=== PATIENT | female | born 1955 | race Caucasian/White ===

== ENCOUNTER 2020-07-12 08:49 | Inpatient (IN) | payer MEDICARE, MEDICAID, SELFPAY ==
[2020-07-12] VITALS (16 sets, daily range): BP systolic 119–164; BP diastolic 70–87; PULSE 65–81; RESP 16–23; TEMP 36.2–36.6; O2SAT 91–98; BMI 24.4
--- NOTE | 2020-07-12 09:09 | XRR_ITS ---
PROCEDURE INFORMATION: Exam: XR Chest Exam date and time: 07/12/2020 9:11 AM Age: 65 years old Clinical indication: Chest pain TECHNIQUE: Imaging protocol: XR of the chest. Views: 1 view. COMPARISON: CR Chest 2 views* [id number] 05/14/2015 1:51 PM FINDINGS: Lungs: Stable COPD . Mild to moderate peribronchial thickening and/or mild perihilar linear markings consistent with bronchitis and/or viral pneumonitis and/or reactive airway disease and/or atypical pulmonary interstitial edema. Possible mild bilateral perihilar and infrahilar bronchopneumonia. Pleural spaces: Unremarkable. No pleural effusion. No pneumothorax. Heart/Mediastinum: Unremarkable. No cardiomegaly. Vasculature: Calcification of the thoracic aorta and/or great vessels consistent with atherosclerotic vessel disease. Bones/joints: Unremarkable. XR/XR chest 1V portable [id number] IMPRESSION: 1. Stable COPD . 2. Mild to moderate peribronchial thickening and/or mild perihilar linear markings consistent with bronchitis and/or viral pneumonitis and/or reactive airway disease and/or atypical pulmonary interstitial edema. 3. Possible mild bilateral perihilar and infrahilar bronchopneumonia.
--- NOTE | 2020-07-12 09:09 | ECG_ITS ---
[facility] Test Date: 2020-07-12 Pat Name: Emeka Quick Department: Room: Gender: Female Family Resource Specialist: : 1955 Requested By: Jonnathan Villanueva Order Number: [id number] Reading MD: ALEXIA ROGERS Measurements Intervals [place] Rate: 73 P: 76 OK: 136 QRS: 77 QRSD: 98 T: 91 QT: 351 QTc: 389 Interpretive Statements SINUS RHYTHM WITH SINUS ARRHYTHMIA POSSIBLE LEFT ATRIAL ENLARGEMENT [-0.1mV P WAVE IN V1/V2] ST DEPRESSION, CONSIDER SUBENDOCARDIAL INJURY [0.1+ mV ST DEPRESSION] No previous ECG available for comparison Electronically Signed On 07-13-2020 22:25:58 CDT by ALEXIA ROGERS [email or web address]/[id number]
--- NOTE | 2020-07-12 09:19 | ED_ITS ---
HPI - Chest Pain General: Chief Complaint: Chest Pain Stated Complaint: CP GOING INTO JAW AND ARMS/BEGAN LAST PM Time Seen by Provider: 07/12/20 08:57 History of Present Illness: HPI narrative: 65-year-old female presents emergency room with complaint of chest epigastric discomfort radiating up into the left side of her jaw and into her arms that started last night. Resolved spontaneously then began again this morning she is at rest each time. She is not had any shortness of breath or diaphoresis with it no nausea or vomiting. She has no known drug history of heart disease she is not diabetic. MD complaint: chest pain and chest discomfort Onset (ago): hour(s) Timing of current episode: episodic Prior episodes: Yes Onset: during rest Pain location: left chest Pain radiation: right arm, left arm, back, neck and jaw/teeth Quality: tightness and heaviness Relieving factors: nothing Exacerbating factors: nothing Associated symptoms: Reports abdominal pain and nausea; Deny diaphoresis, dyspnea, fever(s), leg edema, palpitations, sense of impending doom, syncope or vomiting Treatment prior to arrival: aspirin Review of Systems Const: Denies: fever(s) or diaphoresis ENMT: Denies: throat pain, ear or mastoid pain, nasal discharge or nasal congestion Card: Denies: palpitations or syncope Resp: Denies: dyspnea GI: Reports: abdominal pain and nausea; Denies: vomiting : Denies: flank pain, difficulty voiding, dysuria, urinary frequency or urinary urgency Skin/Breast: Denies: rash or pruritus Physical Exam Const: COMMON NORMALS: no acute distress GENERAL APPEARANCE: cooperative and comfortable ORIENTATION/CONSCIOUSNESS: Yes awake, Yes oriented to person, Yes oriented to place and Yes oriented to time HENMT: COMMON NORMALS: normocephalic, atraumatic and hearing grossly normal bilaterally HEAD & SCALP: normocephalic and atraumatic Neck/C-Spine: COMMON NORMALS: no JVD Resp: COMMON NORMALS: normal respiratory effort, No retractions, No use of accessory muscles and clear to auscultation bilaterally AUSCULTATION: clear to auscultation bilaterally Cardio: COMMON NORMALS: no JVD, regular rate, regular rhythm and No murmurs present (Cardio) RATE: regular rate RHYTHM: regular rhythm GI: COMMON NORMALS: Soft to palpation and No hepatosplenomegaly present AUSCULTATION: Yes normoactive bowel sounds PALPATION: Yes Soft to palpation, No Tenderness to palpation present (GI), No Guarding due to palpation present (GI) and Yes No hepatosplenomegaly present Extremity: COMMON NORMALS: normal to inspection, capillary refill normal, no clubbing, cyanosis or edema, no calf tenderness and no pedal edema Neuro: SENSORIUM/ORIENTATION: Yes oriented to person, Yes oriented to place and Yes oriented to time Skin: COMMON NORMALS: no rashes or lesions noted GENERAL SKIN EXAM: no rashes or lesions noted Course Vital Signs: Vital signs: Vital Signs Temperature 97.8 F 07/14/20 12:00 Pulse Rate 71 07/14/20 14:00 Respiratory Rate 18 07/14/20 15:18 Blood Pressure 100/60 07/14/20 15:18 Pulse Oximetry 98 07/14/20 15:18 MDM - Chest Pain MDM Narrative: Medical decision making narrative: Patient has ST depression in V4 and 5. There is no diagnostic ST elevation laterally and patient is not having any significant pain at this time, resolved with nitro and morphine. First troponin is at 100 we will heparinize start nitro. Admit for NSTEMI. She will be loaded with Plavix as well. Lab Data: Attestation: I reviewed the patient's lab results. Labs: Lab Results 07/12/20 07/12/20 07/12/20 Range/Units 09:20 09:20 09:20 WBC 9.9 (4.0-10.0) 10^3/ uL RBC 5.74 H (4.1-5.3) 10^6/u L Hgb 17.2 H (11.5-15.3) g/dL Hct 51.5 H (37.0-47.0) % MCV 89.7 (81-99) fL MCH 30.0 (28.0-34.0) pg MCHC 33.4 (30.0-36.0) g/dL RDW 12.9 (12.1-15.1) % Plt Count 198 (130-400) 10^3/c mm MPV 9.9 (7.4-10.4) fL Neut % (Auto) 81.6 % Lymph % (Auto) 11.2 % [place] % (Auto) 5.2 % Eos % (Auto) 1.2 % Baso % (Auto) 0.5 % Neut # (Auto) 8.08 H (1.8-7.7) 10^3/u L Lymph # (Auto) 1.1 (0.8-4.8) 10^3/u L [place] # (Auto) 0.5 (0.2-0.9) 10^3/u L Eos # (Auto) 0.1 (0.0-0.8) 10^3/u L Baso # (Auto) 0.1 (0.0-0.1) 10^3/u L Nucleated RBC % (a uto) 0 % Nucleated RBCs # 0.0 /100WBC Sodium 141 (136-145) mmol/L Potassium 4.0 (3.5-5.1) mmol/L Chloride 101 (98-107) mmol/L Carbon Dioxide 32 H (22-29) mmol/L Anion Gap 12.0 (5-19) BUN 13 (8-23) mg/dL Creatinine 0.6 (0.5-0.9) mg/dL GFR Calculation 100.3 (90-130) mL/min Glucose 131 H (65-115) mg/dL Calculated Osmolal ity 294 (285-295) mOsm/k g Calcium 9.8 (8.5-10.5) mg/dL Total Bilirubin 0.4 (0.15-1.2) mg/dL AST 22 (0-32) U/L ALT 8 (0-33) U/L Alkaline Phosphata se 89 (35-105) IU/L Creatine Kinase 187 (26-192) U/L Troponin T Baselin e 102 H* (0-10) ng/L Total Protein 7.7 (6.6-8.7) g/dL Albumin 4.8 (3.5-5.2) g/dL Globulin 2.9 (1.3-4.6) g/dL Discharge Plan Discharge Patient Disposition: Admitted As Inpatient Admit Provider: Iraj Cooney Clinical Impression: Non-ST elevation [place] (NSTEMI) Condition: Stable Discharge Diet: Cardiac Discharge Activity: Resume usual activity Coding Level of Care Code ED Us Marketing Director for [facility] Fwd Exam Comprehensive
[2020-07-12 09:31] LABS: Basophils # 0.1 10^3/uL (0.0-0.1); Basophils % 0.5 %; Eosinophils # 0.1 10^3/uL (0.0-0.8); Eosinophils % 1.2 %; Hematocrit 51.5 % (37.0-47.0); Hemoglobin 17.2 g/dL (11.5-15.3); Lymphocytes # 1.1 10^3/uL (0.8-4.8); Lymphocytes % 11.2 %; Mean Corpuscular HGB Conc 33.4 g/dL (30.0-36.0); Mean Corpuscular Volume 89.7 fL (81-99); Mean Platelet Volume 9.9 fL (7.4-10.4); Monocytes # 0.5 10^3/uL (0.2-0.9); Monocytes % 5.2 %; Neutrophils # 8.08 10^3/uL (1.8-7.7); Neutrophils % 81.6 %; Nucleated Red Blood Cells % 0 %; Platelet Count 198 10^3/cmm (130-400); Red Blood Count 5.74 10^6/uL (4.1-5.3); Red Cell Distribution Width 12.9 % (12.1-15.1); White Blood Count 9.9 10^3/uL (4.0-10.0)
[2020-07-12] MEDS: nitroglycerin 1 gm/inch oint Pkt 1 INCH TOPICAL (09:31)
[2020-07-12] MEDS: aspirin 81 mg Chew Tablet 324 MG PO (09:31)
[2020-07-12 09:58] LABS: Alanine Aminotransferase 8 U/L (0-33); Albumin Level 4.8 g/dL (3.5-5.2); Alkaline Phosphatase 89 IU/L (35-105); Aspartate Amino Transferase 22 U/L (0-32); Blood Urea Nitrogen 13 mg/dL (8-23); Calcium 9.8 mg/dL (8.5-10.5); Carbon Dioxide 32 mmol/L (22-29); Chloride 101 mmol/L (98-107); Creatine Phosphokinase 187 U/L (26-192); Globulin 2.9 g/dL (1.3-4.6); Glomerular Filtration Rate 100.3 mL/min (90-130); Glucose 131 mg/dL (65-115); Osmolality Calculated 294 mOsm/kg (285-295); Sodium 141 mmol/L (136-145); Total Bilirubin 0.4 mg/dL (0.15-1.2); Total Protein 7.7 g/dL (6.6-8.7)
[2020-07-12 10:14] LABS: Troponin(5th) Baseline 102 ng/L (0-10)
[2020-07-12] MEDS: morphine 4 mg/mL SDV 1 mL 2 MG IVP ×2 (10:34→11:02)
[2020-07-12] MEDS: heparin 5,000 unit/mL INJ 1 mL 4000 UNIT IVP (10:35)
[2020-07-12] MEDS: heparin drip 25,000 UNIT/500 ML PREMIX 15.9 UNIT IV (10:42)
[2020-07-12] MEDS: nicotine 21 mg Patch 1 PATCH TRANSDERMA (10:53)
[2020-07-12] MEDS: clopidogrel 300 mg Tablet 600 MG PO (10:53)
--- NOTE | 2020-07-12 11:09 | ECG_ITS ---
[facility] Test Date: 2020-07-12 Pat Name: Emeka Quick Department: Room: 111 Gender: Female Director Of Enterprise Strategy: : 1955 Requested By: Jonnathan Villanueva Order Number: [id number] Reading MD: ALEXIA ROGERS Measurements Intervals [place] Rate: 65 P: 79 [place]: 137 QRS: 66 QRSD: 86 T: -15 QT: 380 QTc: 397 Interpretive Statements SINUS RHYTHM LEFT VENTRICULAR HYPERTROPHY AND ST-T CHANGE [VOLTAGE CRITERIA PLUS ST/T ABNORMALITY] Compared to ECG 07/12/2020 08:56:56 Left ventricular hypertrophy now present Sinus arrhythmia no longer present ST (T wave) deviation still present Electronically Signed On 07-13-2020 22:28:56 CDT by ALEXIA ROGERS [id number]
[2020-07-12] MEDS: ondansetron 2 mg/ML SDV 2 mL 4 MG IVP (12:33)
[2020-07-12 12:57] LABS: Troponin 5 2HR 257.5 ng/L (0-10)
[2020-07-12 13:00] LABS: Troponin 5 2HR Delta 155.5 ABS# (0-10)
--- NOTE | 2020-07-12 14:00 | USCV_ITS ---
Emeka Quick Age: 65 Gender: F : 1955 Exam Date: 07/12/2020 16:19 Ordering Phys: Iraj Cooney MD Technologist: COLETTE Exam Location: [facility] Indication: Chest pain BP: 132 / 73 HR: 59 Rhythm: Sinus Technical Quality: Adequate MEASUREMENTS (Male / Female) Normal Values 2D ECHO LV Diastolic Diameter PLAX 4.0 cm 4.2 - 5.9 / 3.9 - 5.3 cm LV Systolic Diameter PLAX 2.3 cm LV Chamber Size 3.3 cm IVS Diastolic Thickness 1.1 cm 0.6 - 1.0 / 0.6 - 0.9 cm IVS Systolic Thickness 2.0 cm LVPW Diastolic Thickness 0.9 cm 0.6 - 1.0 / 0.6 - 0.9 cm LVPW Systolic Thickness 0.8 cm RV Chamber Size 2.0 cm LVOT Diameter 1.8 cm LV Ejection Fraction 2D Teich 74.3 % LV Ejection Fraction MOD 2C 75.8 % LV Ejection Fraction 2C AL 78.2 % LA Diameter 2.9 cm LA Width 3.1 cm LA Height 4.4 cm RA Width 2.0 cm RA Height 4.3 cm Aorta at Sinotubular Diameter 2.9 cm M-MODE LV Diastolic Diameter MM 4.0 cm 4.2 - 5.9 / 3.9 - 5.3 cm LV Systolic Diameter MM 2.7 cm LV Ejection Fraction MM Teich 61.7 % IVS Diastolic Thickness MM 1.2 cm 0.6 - 1.0 / 0.6 - 0.9 cm IVS Systolic Thickness MM 1.6 cm LVPW Diastolic Thickness MM 1.4 cm 0.6 - 1.0 / 0.6 - 0.9 cm LVPW Systolic Thickness MM 1.3 cm RV Diastolic Diameter MM 1.3 cm Aortic Annulus Diameter 2.4 cm LA Ao Ratio MM 1.3 MV E Point Septal Separation 0.3 cm DOPPLER AV Peak Velocity 99.0 cm/s LVOT Peak Velocity 61.0 cm/s AV Area Cont Eq vti 1.7 cm squared AV Area Cont Eq pk 1.6 cm squared MV Area PHT 4.3 cm squared Mitral E to A Ratio 1.3 MV E' Velocity 30.5 cm/s Mitral E to MV E' Ratio 8.1 Mitral E to LV E' Lateral Ratio 7.6 Mitral E to LV E' Septal Ratio 8.6 TR Peak Velocity 266.9 cm/s TR Peak Gradient 28.5 mmHg TR Mean Velocity 212.1 cm/s TR Mean Gradient 19.1 mmHg TR Velocity Time Integral 90.1 cm TV Peak E Velocity 65.0 cm/s Right Atrial Pressure 3.0 mmHg Pulmonary Artery Systolic Pressu 31.5 mmHg PV Peak Velocity 44.0 cm/s RV Acceleration Time 0.1 s RV Ejection Time 0.3 s RV AcT/ET 0.3 FINDINGS Left Ventricle Normal left ventricular cavity size. Normal left ventricular systolic function. Left ventricular ejection fraction is estimated at 55 %. No regional wall motion abnormalities. Grade II/IV diastolic dysfunction, moderately elevated filling pressures. Right Ventricle The right ventricle is normal in size and function. Right Atrium The right atrium is normal in size. Left Atrium The left atrium is normal in size. Mitral Valve Mildly thickened mitral valve. No mitral valve stenosis. Moderate mitral valve regurgitation. Aortic Valve Aortic valve sclerosis without stenosis. Tricuspid Valve Structurally normal tricuspid valve without significant stenosis or regurgitation. Pulmonary artery systolic pressure is normal. Pulmonic Valve Structurally normal pulmonic valve without significant stenosis. There is no pulmonic regurgitation. Pericardium Normal pericardium without effusion. Aorta Normal ascending aorta dimension. CONCLUSIONS 1-Normal left ventricular cavity size. Normal left ventricular systolic function. Left ventricular ejection fraction is estimated at 55 %. No regional wall motion abnormalities. Grade II/IV diastolic dysfunction, moderately elevated filling pressures. 2-Aortic valve sclerosis without stenosis. 3-Mildly thickened mitral valve. No mitral valve stenosis. Moderate mitral valve regurgitation. 4-There is no pericardial effusion. 5-Pulmonary artery systolic pressure is within normal limits. 6-Right atrial pressure is around 5 mm of mercury. 7-There are no prior echocardiogram studies to compare. Katia Newton MD (Electronically Signed) Final Date: 13 Jul 2020 00:03 S
[2020-07-12] MEDS: isosorbide mononitrate ER 30 mg Tablet PO (14:19)
[2020-07-12] MEDS: enoxaparin 60 mg/0.6 mL Syringe SUBCUT (14:19)
[2020-07-12] MEDS: metoprolol tartrate 25 mg Tablet 12.5 MG PO ×2 (14:19→20:19)
--- NOTE | 2020-07-12 14:19 | P.HP_ITS ---
Providers/Chief Complaint Admitting Physician: Iraj Cooney MD Primary Care Provider: Abby Stanton, TRAVEL FREIGHT AND PASSENGER AGENT-C Chief Complaint: CP GOING INTO JAW AND ARMS/BEGAN LAST PM History of Present Illness Emeka Quick is a 65 year old female with past medical history of chronic smoking, for close to 50 years, about a pack a day, and chronic back pain , came in with chief complaint of acute onset of left-sided substernal chest pain, radiating to both the arms, as well as both jaws, it was also accompanied by, profuse diaphoresis, nausea. Symptoms started last night. Upon arrival in the ER she was worked up for above-mentioned. EKG: On arrival showed ST depression in: Lead I, aVL, V4 V5, with evolving ST changes in lead III aVF. Serial EKG thereafter done had shown dynamic ST-T wave changes. X-ray chest: No infiltrates, chronic COPD changes. Pertinent labs: Hemoglobin: 17.2, hematocrit:51, CMP normal: Troponin T baseline: 102, 2-hour troponin: 257, 2-hour delta:155, 6 hours troponin: 514, 6-hour delta: 412. ECA medications: Upon arrival in the ER : She was loaded with aspirin and Plavix, and was started on heparin drip.Nitropaste was applied. Review of Systems Const: Denies: fever(s), chills or body aches Card: Denies: palpitations, edema, swelling of feet/ankles or leg pain with exertion Resp: Denies: productive cough or pain on inspiration GI: Denies: abdominal pain, diarrhea or constipation : Denies: flank pain Musc: Denies: extremity pain or extremity swelling Neuro: Denies: headache(s), difficulty walking or confusion Medications/Allergies Home Medications Medication Instructions Recorded Confirmed Last Taken Type aspirin-caffeine [BC Pain Relief] See Rx Instructions .ROUTE .COMPLEX 07/12/20 07/12/20 07/11/20 History naproxen sodium [Aleve] 220 - 440 mg PO Q8H PRN 07/12/20 07/12/20 07/11/20 History oxycodone 15 mg PO Q4H PRN 07/12/20 07/12/20 07/12/20 History Allergies Allergy/AdvReac Type Severity Reaction Status Date / Time cephalexin [From Keflex] Allergy ALGY-Difficulty Verified 07/12/20 08:56 Breathing Vitals/I&O/Wt Last Vital Signs Temp 97.1 F L 07/12/20 08:50 Pulse 70 07/12/20 13:44 Resp 19 H 07/12/20 13:44 BP 138/77 07/12/20 13:44 Pulse Ox 94 07/12/20 13:44 Weight last 48 hrs Weight 56.699 kg Physical Exam Const: COMMON NORMALS: patient oriented x3 HENMT: COMMON NORMALS: normocephalic and atraumatic Resp: COMMON NORMALS: clear to auscultation bilaterally EFFORT & INSPECTION: Yes symmetric chest movement AUSCULTATION: clear to auscultation bilaterally Cardio: COMMON NORMALS: regular rate, regular rhythm, S1 normal heart sound present, S2 normal heart sound present, No gallops present (Cardio), No murmurs present (Cardio), No rub (Cardio) and Peripheral pulses 2+ throughout RATE: regular rate RHYTHM: regular rhythm HEART SOUNDS: S1 normal heart sound present and S2 normal heart sound present PERIPHERAL PULSES: Peripheral pulses 2+ throughout GI: COMMON NORMALS: Normal to inspection, nondistended, normoactive bowel sounds present, Soft to palpation, non-tender, No hepatosplenomegaly present and no masses AUSCULTATION: Yes normoactive bowel sounds PALPATION: Yes Soft to palpation and Yes No hepatosplenomegaly present RECTAL EXAM: deferred Extremity: COMMON NORMALS: no clubbing, cyanosis or edema and no pedal edema Neuro: COMMON NORMALS: patient oriented x3 Data : 07/12/20 09:20 07/12/20 09:20 A&P Assessment and plan (1) Non-ST elevation CT (NSTEMI): 2D echo: Telemetry Aspirin 81 mg oral daily Plavix 75 mg p.o. day Metoprolol tartrate 12.5 mg p.o. every 12 hours Atorvastatin 80 mg p.o. IMDUR 30 mg p.o. a day Lovenox 60 twice daily Nitro drip Sublingual nitro as needed N.p.o. after midnight Cardiac cath in a.m. Cardiology on board Status: Acute (2) Chronic back pain: Status: Acute (3) Smoking addiction: Nicotine patch Have counseled the patient to quit smoking. Status: Acute Attestations Medical Necessity Statement*: Patient needs to be in hospital for management of NSTEMI. Anticipated length of stay greater than 2 midnightS. Coding Level of Care Code Acute Teacher Associate for Tamar Acuña Diagnoses Non-ST elevation CT (NSTEMI) I21.4 Chronic back pain M54.9; G89.29 Smoking addiction F17.200
--- NOTE | 2020-07-12 15:09 | ECG_ITS ---
[facility] Test Date: 2020-07-12 Pat Name: Emeka Quick Department: Room: 111 Gender: Female Staff Research Scientist: : 1955 Requested By: Jonnathan Villanueva Order Number: [id number] Reading MD: ALEXIA ROGERS Measurements Intervals [place] Rate: 66 P: 76 NC: 133 QRS: 48 QRSD: 87 T: -42 QT: 414 QTc: 437 Interpretive Statements SINUS RHYTHM ST DEVIATION AND MODERATE T-WAVE ABNORMALITY, CONSIDER INFERIOR ISCHEMIA [-0.1+ mV T WAVE IN II/aVF] Compared to ECG 07/12/2020 12:14:39 T-wave abnormality now present Possible ischemia now present Left ventricular hypertrophy no longer present ST (T wave) deviation no longer present Electronically Signed On 07-13-2020 22:28:39 CDT by ALEXIA ROGERS [id number]
[2020-07-12 15:50] LABS: Troponin 5 6HR 514.7 ng/L (0-10); Troponin 5 6HR Delta 412.7 ng/L (0-12)
[2020-07-12] MEDS: nitroglycerin drip 50 MG/250 ML PREMIX IV (15:55)
[2020-07-12] MEDS: oxyCODONE-APAP 5-325 mg Tablet 1 TAB PO ×2 (16:48→20:52)
--- NOTE | 2020-07-12 19:27 | PM.CONSULT ---
Providers/Reason For Consult Consulting Physican/Specialty*: Cardiology Reason for Consult*: Non-ST elevation OK Attending Physician: Iraj Cooney MD Primary Care Provider: CHINO Thapa History of Present Illness History of Present Illness Emeka Quick is a 65 year old female past medical history significant for [id number] continues tobacco abuse COPD hypertension hyperlipidemia was struggling with chest pain for the last 2 days. This morning it became more intense and concerning therefore she decided to come to the ER. In the ER she was given nitro and pain medicine after that pain stopped hurting. She was ruled in for non-ST elevation OK. She was given Lovenox and loaded with 600 mg of Plavix Review of Systems Const: Denies: fever(s) or diaphoresis ENMT: Denies: throat pain, ear or mastoid pain, nasal discharge or nasal congestion Card: Denies: palpitations or syncope Resp: Denies: dyspnea GI: Reports: abdominal pain and nausea; Denies: vomiting : Denies: flank pain, difficulty voiding, dysuria, urinary frequency or urinary urgency Skin/Breast: Denies: rash or pruritus Meds/Allergies Home Medications and Allergies Home Medications Medication Instructions Recorded Confirmed Last Taken Type aspirin-caffeine [BC Pain Relief] See Rx Instructions .ROUTE .COMPLEX 07/12/20 07/12/20 07/11/20 History naproxen sodium [Aleve] 220 - 440 mg PO Q8H PRN 07/12/20 07/12/20 07/11/20 History oxycodone 15 mg PO Q4H PRN 07/12/20 07/12/20 07/12/20 History Allergies Allergy/AdvReac Type Severity Reaction Status Date / Time cephalexin [From Keflex] Allergy ALGY-Difficulty Verified 07/12/20 08:56 Breathing Current Medications Current Medications Generic Name Dose Route Start Last Admin Trade Name Freq PRN Reason Stop Dose Admin Enoxaparin Sodium 60 mg 07/12/20 14:30 07/12/20 14:19 Enoxaparin 60 Mg/0.6 Ml Syringe SUBCUT 60 mg Q12H DEANGELO Administration Nitroglycerin/Dextrose 50 mg in 250 mls @ 0 mls/hr 07/12/20 14:15 07/12/20 15:55 Nitroglycerin Drip IV 5 mcg/min .Q0M DEANGELO 1.5 mls/hr Administration Protocol Per Protocol Isosorbide Mononitrate 30 mg 07/12/20 14:05 07/12/20 14:19 Isosorbide Mononitrate Er 30 Mg Tablet PO 30 mg DAILY DEANGELO Administration Metoprolol Tartrate 12.5 mg 07/12/20 14:05 07/12/20 14:19 Metoprolol Tartrate 25 Mg Tablet PO 12.5 mg BID@0900,2100 DEANGELO Administration Oxycodone/Acetaminophen 1 tab 07/12/20 13:57 07/12/20 16:48 Oxycodone-Apap 5-325 Mg Tablet PO 1 tab Q4H PRN Administration SEVERE PAIN Vitals/I&O/Wt Last Vital Signs Temp 97.9 F 07/12/20 14:55 Pulse 74 07/12/20 14:55 Resp 18 07/12/20 16:48 BP 132/73 07/12/20 14:55 Pulse Ox 95 07/12/20 14:55 07/12/20 07/12/20 07/12/20 06:59 14:59 22:59 Intake Total 52.47 / 52.47 120 / 172.47 Balance 52.47 / 52.47 120 / 172.47 Weight last 48 hrs Weight 125 lb Physical Exam Narrative: EXAM NARRATIVE: GENERAL: Patient is alert, awake and oriented x3. NECK: No jugular vein distension. HEENT: No cyanosis. No icterus. No pallor. HEART: Regular S1 and S2. No murmur, rub or gallop. LUNGS: Clear to auscultate bilaterally. ABDOMEN: Soft, nontender and nondistended. Positive bowel sounds. No guarding, rebound or tenderness. CENTRAL NERVOUS SYSTEM: Grossly nonfocal. EXTREMITIES: Lower extremities without edema bilaterally. Data EKG^: EKG 1: I personally reviewed and interpreted this EKG as follows: My Interpretation: Sinus rhythm normal axis inferior T wave inversion possible ischemia however normal CO and QT QTc interval A&P Assessment and plan (1) Non-ST elevation [place] (NSTEMI): Currently patient is chest pain-free troponin more than 500 suggestive of non-ST relation OK. Possible lesion in the inferior wall/of RCA. Continue monitoring continue nitro drip will proceed with left heart cath/PCI if indicated in the morning. Patient has been explained by myself all risk benefit and alternative for the procedure he understand the risk of major minor surgery major minor bleed urgent emergent CABG stroke and worse case scenario . She would like to proceed with it. She is a suitable candidate for DAPT. Will ask for echocardiogram to assess LV function Status: Acute (2) Chronic back pain: Status: Acute Qualifiers: Back pain location: low back pain Sciatica presence: unspecified whether sciatica present (3) Smoking addiction: Advised to quit smoking patient did not see anything about it Status: Acute Consult Attestations Medical Necessity Statement: I am expecting patient stay to cross more than 2 midnights Coding Level of Care Code New Pt Acute Inside Sales Account Representative for g Fwd Patient Type New History Detailed Exam Detailed Medical Decision Making Moderate Complexity Diagnoses Non-ST elevation [place] (NSTEMI) I21.4 Chronic back pain M54.9; G89.29 Back pain location: low back pain Sciatica presence: unspecified whether sciatica present Smoking addiction F17.200
[2020-07-12] MEDS: atorvastatin 40 mg Tablet 80 MG PO (20:18)
[2020-07-13] VITALS (43 sets, daily range): BP systolic 92–141; BP diastolic 57–86; PULSE 66–96; RESP 16–33; TEMP 36.6–36.9; O2SAT 89–98
[2020-07-13] MEDS: ondansetron 2 mg/ML SDV 2 mL 4 MG IVP (01:58)
[2020-07-13] MEDS: enoxaparin 60 mg/0.6 mL Syringe SUBCUT (02:00)
[2020-07-13] MEDS: morphine 4 mg/mL SDV 1 mL 2 MG IVP ×2 (02:05→20:44)
[2020-07-13] MEDS: zolpidem 5 mg Tablet PO (02:59)
[2020-07-13 05:34] LABS: Basophils % 0.3 %; Hematocrit 45.9 % (37.0-47.0); Hemoglobin 14.7 g/dL (11.5-15.3); Lymphocytes # 1.2 10^3/uL (0.8-4.8); Lymphocytes % 8.3 %; Mean Corpuscular Hemoglobin 29.5 pg (28.0-34.0); Mean Corpuscular Volume 92.2 fL (81-99); Mean Platelet Volume 10.3 fL (7.4-10.4); Nucleated Red Blood Cells % 0 %; Platelet Count 205 10^3/cmm (130-400); Red Blood Count 4.98 10^6/uL (4.1-5.3); Red Cell Distribution Width 13.2 % (12.1-15.1); White Blood Count 14.1 10^3/uL (4.0-10.0)
[2020-07-13] MEDS: sodium chloride 0.9% 1,000 ML 50 ML IV (05:40)
[2020-07-13 05:55] LABS: Alanine Aminotransferase 26 U/L (0-33); Albumin Level 3.6 g/dL (3.5-5.2); Alkaline Phosphatase 69 IU/L (35-105); Aspartate Amino Transferase 151 U/L (0-32); Blood Urea Nitrogen 14 mg/dL (8-23); Calcium 9.1 mg/dL (8.5-10.5); Carbon Dioxide 25 mmol/L (22-29); Chloride 98 mmol/L (98-107); Globulin 2.9 g/dL (1.3-4.6); Glomerular Filtration Rate 160.2 mL/min (90-130); Glucose 123 mg/dL (65-115); Osmolality Calculated 276 mOsm/kg (285-295); Sodium 132 mmol/L (136-145); Total Bilirubin 0.9 mg/dL (0.15-1.2); Total Protein 6.5 g/dL (6.6-8.7)
[2020-07-13 06:02] LABS: Anion Gap 12.6 (5-19); Potassium 3.6 mmol/L (3.5-5.1)
[2020-07-13] MEDS: diphenhydrAMINE 50 mg Capsule PO (08:23)
--- NOTE | 2020-07-13 09:11 | PC.NURSE ---
Per Dr. Newton, please hold all morning medications until after cardiac cath.
--- NOTE | 2020-07-13 09:46 | XACV_ITS ---
Exam Room: [facility] Ht: 152 cm Wt: 57 kg BSA: 1.56 m2 Gender: Female : 1955 Any Known Allergies: Other Exam Priority: Routine Procedure(s): Procedure Description: Diagnostic procedure Procedure Description: PCI procedure Procedure Description: Drug Eluting Coronary Stent Procedure Description: PTCA Procedure Description: Coronary Angiography Diagnostic Cath Status: Elective Diagnostic Findings * Left Main has no disease. * Left Anterior Descending has no disease. * Circumflex has no disease. * Distal Right Coronary Artery: subtotal occlusion, CARLOS: 2 flow. * Coronary angiography shows right dominance. PCI Status: Elective Interventional Findings * Distal Right Coronary Artery: 96% stenosis treated with a AB TREK 2.50X15 RX BALLOON, and MDT R MEERA 3.0X18 MAURO. 0% residual stenosis, CARLOS: 3 flow. Conclusions 1. There is subtotal occlusion coronary artery disease with one vessel disease. 2. Distal Right Coronary Artery was treated with a Balloon, and Drug Eluting Stent. Recommendations * Continue current medical management and risk factor modification. Pressures Phase:Rest AO : 185 / 65 ( 79 ) @ 10:07:00 AM Clinical Evaluation EBL: 5mL-10mL Procedural Details Procedure Consent Obtained. Identified patient by full name and date of as verbalized by the patient/guarantor. Pre-Procedure Time Out. Does the consent match the physician's order: Yes. Accurate & Complete Informed Consent: Yes. Inpatient/Outpatient History & Physical on Chart: Yes. If H&P is completed, is and addenduem needed: No; If yes, is the addendum complete: N/A. Visualize and Verify Site with Patient/Guarantor: N/A. Relevant Radiology Images available: Yes. Pre-op teaching completed and patient verbalized understanding. The risks, benefits, and alternatives of sedation and/or procedure were discussed by physician. The patient agrees to continue. Procedure started. [facility] Clinical Fraility Score: 3: Managing Well. Safety Spec Indications: Suspected CAD. Chest Pain Symptom Assessment: Typical Angina Symptoms. Cardiovascular Instability: No. Correct patient, site and procedure confirmed by cath team. Current diagnosis: NSTEMI. PERRLA. Strong, equal hand airport guide bilaterally. Lungs clear x 5 lobes. IV Site on Arrival: 20 gauge in the left anticubital. IV Fluids: 0.9% NaCl at KVO. 0 mL infused prior to superintendent geophysical laboratory. Pre Procedural Pulses: bilateral dorsalis pedis was 3+. Pre Procedural Pulses: bilateral posterior tibial was 3+. Pre Procedural Pulses: bilateral radial was 3+. Oxygen started at 2liters/min via nasal canula. bilateral groins was prepped with chloroprep then draped in the usual sterile fashion. right radial was prepped with chloroprep then draped in the usual sterile fashion. Physician notified. Baseline sample Acquired. HR: 72 BPM. Equipment: 6F - Radial. ACIST Manifold Kit Model BT 2000. Cardiac Cath Pack. Heparinized Saline (2 units/mL), 1000 mL bag. Physician arrived. Physician scrubbed in. Immediate Pre-Procedure Time Out. Correct Patient: Yes; Correct Procedure: Yes; Correct Site: Yes; Correct Patient Position: Yes; Correct Supplies: Yes; Dried Flammable Prep: Yes; Blood Products Available: No;. Lidocaine 1% infiltrated to the right radial. Arterial access obtained. A 6 niuean TIG catheter in over wire. Multiple views taken of right coronary artery. Catheter redirected to the RCA. Catheter out. 6 niuean JR 4 SH guide catheter was inserted over the wire. Hand injection performed. Guide catheter out. Radial site aborted due to spasms. Physician will obtain access in the groin. Lidocaine 1% infiltrated to the right groin. Arterial access obtained with micropuncture set. 6 niuean JR 4 SH guide catheter was inserted over the wire. [place] guidewire was advanced through the guide catheter to lesion in the mid RCA. Inflation number : 1 A AB TREK 2.50X15 RX BALLOON was prepped and advanced across the Mid RCA , then inflated to 16 CLAIRE for 0:09 seconds. Inflation number: 2 The AB TREK 2.50X15 RX BALLOON was reinflated across the Mid RCA, to 16 CLAIRE for 0:14 seconds. Balloon out. Inflation Number : 3 A LUZ ELENA Merlos MEERA 3.0X18 MAURO -Lot Number#[id number] was prepped and advanced across the Mid RCA. The stent was deployed at 16 CLAIRE for 0:25 seconds. Stent expiration date: 03-31-2022. Stent balloon out over wire. Wire out. Guide catheter out. Sheath(s) sutured into position with 2-0 silk and sterile 4x4's and Op-site applied over the site. No oozing or signs and symptoms of hematoma noted. Arterial sheath flushed and connected to tranducer and pressure bag with heparinized saline. A TR Band was successful obtaining hemostatsis at the Right Radial artery insertion site. A Suture was successful obtaining hemostatsis at the Right Femoral artery insertion site. Post Procedure: Pulses reassessed and unchanged. PERRLA. Strong, equal hand airport guide bilaterally. No VTE prophylaxis required. Medication's Wasted: Heparin = 4000 units. Medication's Wasted: Lidocaine 1% = 8 mL. Medication's Wasted: Nitro = 49.6 mg. Medication's Wasted: Other = Versed 1 mg. Vital chart was stopped. Total IV fluids: 100 mL. Contrast type used: Omnipaque 300 mgI/mL, 500 mL bottle. PCI Indication: NSTE. Post-op diagnosis: Severe Stenosis of RCA. Complications: None. Estimated blood loss: 5mL-10mL. Procedure completed. Patient transferred by bed to 1st floor. Access Site Site: Right Radial artery Sheath Size: 6 Fr Hemostasis Method: TR Band Hemostasis Success: Successful Site: Right Femoral artery Sheath Size: 6 Fr Hemostasis Method: Suture Hemostasis Success: Successful Procedure Medications Start: 10:11 AM Stop: 10:11 AM Medication: Fentanyl Amount: 50 mcg Route: I.V. Start: 10:28 AM Stop: 10:28 AM Medication: Versed Amount: 1 mg Route: I.V. Start: 10:33 AM Stop: 10:33 AM Medication: Nitrogylcerin Amount: 200 mcg Route: I.A. Start: 10:33 AM Stop: 10:33 AM Medication: Versed 1 mg and Fentanyl 25 mcg Amount: 1 Route: I.V. Start: 10:42 AM Stop: 10:42 AM Medication: Nitrogylcerin Amount: 200 mcg Route: I.A. Start: 10:44 AM Stop: 10:44 AM Medication: Nitrogylcerin Amount: 200 mcg Route: I.A. Start: 10:44 AM Stop: 10:44 AM Medication: Lovenox (Enoxaparin) Amount: 30 mg Route: I.V. Start: 10:46 AM Stop: 10:46 AM Medication: Verapamil Amount: 5 mg Route: I.A. Start: 10:52 AM Stop: 10:52 AM Medication: Versed 1 mg and Fentanyl 25 mcg Amount: 1 Route: IFelicity Isbell, the attending physician, have reviewed and verified all procedure medications. Yes, all medications given per verbal order History/Risk Factors Hypertension: Yes Dyslipidemia: Yes Peripheral Arterial Disease (PAD): No Myocardial Infarction (SD): No Obesity: No Renal Disease: No Tobacco Use: Current/Recent(w/in 1 year) Prior Interventions PCI: No CABG: No Valve Surgery: No Report Signatures Finalized by Katia Newton MD on 07/22/2020 09:35 PM
--- NOTE | 2020-07-13 09:59 | PC.NURSE ---
Patient taken to laborer laboratory via hospital bed Per ADOLFO Kaplan and Lisy. Introduced patient to laborer laboratory staff. No questions at time of transfer.
--- NOTE | 2020-07-13 11:54 | PC.CHAP ---
Pastoral Care Encounter/Spiritual Assessment Type of Contact [] Declined service dog trainer visit [] Patient/Family/Request visit [] Outpatient visit [] Follow-up visit [] Physician referral [] Code/Alert [XX] Routine visit [] Staff referral [] Actively dying [] Patient sleeping [] Family support [] [XX] Out of room [] Palliative care [] [] Receiving care in room [] Pre-surgical visit [] Trauma [] Long length of stay [] ICU visit [] Other: Relational/Emotional Strength [] Patient feels connected with others/family/visitors/staff [] Distress [] Loneliness/isolation [] Abandonment Spirituality of Patient [] Person of Belkis [] Attends Oriental Orthodox of their [place] [] Believes in Prayer [] Reads Bible or Bahai materials [] There are Spiritual issues to be addressed Plant Clerk Interventions [] Prayer [] Active listening [] Non-anxious presence [] Spiritual/emotional support [] Crisis/trauma care [] Spiritual counseling [] Bereavement support [] Provided bereavement packet [] Provided Bible/devotional materials [] Provided toy/stuffed animal, coloring book to patient or family member [] Provided Communion [] Anointing/[place] [] Salvation [] Completed spiritual assessment [] Other: Impact on Illness or Injury [] Angry [] Fearful [] Anxious [] Often cries [] Exhaustion [] Unable to work [] Unable to attend episcopalian [] Unable to walk/stand [] Unable to read [] Unable to drive [] Unable to eat/drink [] Unable to sleep [] Unable to be with family [] Patient intubated [] Other: Summary Time spent with patient
[2020-07-13] MEDS: aspirin 81 mg Chew Tablet PO (12:03)
[2020-07-13] MEDS: pantoprazole DR 40 mg Tablet PO (12:03)
[2020-07-13] MEDS: metoprolol tartrate 25 mg Tablet 12.5 MG PO ×2 (12:03→20:38)
[2020-07-13] MEDS: isosorbide mononitrate ER 30 mg Tablet PO (12:04)
--- NOTE | 2020-07-13 12:16 | P.PN_ITS ---
Subjective Subjective: Interval history: Status post PCI to mid RCA with single drug- eluting stent for severe 90% stenosis which is the culprit vessel Medications: Reviewed: Yes Vitals/I&O/Wt Last Vital Signs Temp 98.3 F 07/13/20 07:44 Pulse 77 07/13/20 11:31 Resp 18 07/13/20 11:31 BP 131/76 07/13/20 11:31 Pulse Ox 95 07/13/20 11:31 07/12/20 07/13/20 07/13/20 22:59 06:59 14:59 Intake Total 132 / 184.47 14 / 198.47 Balance 132 / 184.47 14 / 198.47 Weight last 48 hrs Weight 125 lb Physical Exam Narrative: EXAM NARRATIVE: GENERAL: Patient is alert, awake and oriented x3. NECK: No jugular vein distension. HEENT: No cyanosis. No icterus. No pallor. HEART: Regular S1 and S2. No murmur, rub or gallop. LUNGS: Clear to auscultate bilaterally. ABDOMEN: Soft, nontender and nondistended. Positive bowel sounds. No guarding, rebound or tenderness. CENTRAL NERVOUS SYSTEM: Grossly nonfocal. EXTREMITIES: Lower extremities without edema bilaterally. Data : 07/13/20 04:45 07/13/20 04:45 A&P Assessment and plan (1) Non-ST elevation [place] (NSTEMI): Currently patient is chest pain-free troponin more than 500 suggestive of non-ST relation [place]. Possible lesion in the inferior wall/of RCA. Continue monitoring continue nitro drip will proceed with left heart cath/PCI if indicated in the morning. Patient has been explained by myself all risk benefit and alternative for the procedure he understand the risk of major minor surgery major minor bleed urgent emergent CABG stroke and worse case scenario . She would like to proceed with it. She is a suitable candidate for DAPT. Will ask for echocardiogram to assess LV function On today's visit patient underwent coronary angiogram found to have 90 to 95% severely stenotic mid RCA treated with single drug-eluting stent. Excellent angiographic result with CARLOS-3 flow was restored. Patient was loaded with 60 mg of Plavix yesterday we will discontinue Lovenox and continue Plavix 75 mg p.o. daily. Status: Acute (2) Chronic back pain: Status: Acute Qualifiers: Back pain location: low back pain Sciatica presence: unspecified whethe r sciatica present (3) Smoking addiction: Advised to quit smoking patient did not see anything about it Status: Acute Attestations Medical Necessity Statement*: Patient will be requiring continuation hospitalization overnight for post PCI care. Coding Level of Care Code Established Pt Acute Measurement Specialist for Tamar Acuña Patient Type Established History Detailed Exam Detailed Medical Decision Making Moderate Complexity Diagnoses Non-ST elevation [place] (NSTEMI) I21.4 Chronic back pain M54.9; G89.29 Back pain location: low back pain Sciatica presence: unspecified whether sciatica present Smoking addiction F17.200
[2020-07-13] MEDS: clopidogrel 75 mg Tablet PO (12:31)
--- NOTE | 2020-07-13 12:36 | P.PN_ITS ---
Subjective Subjective: Interval history: Status post PCI to mid RCA with single MAURO. CAG : Mid RCA 90% stenosis. Medications: Reviewed: Yes Vitals/I&O/Wt Last Vital Signs Temp 98.3 F 07/13/20 07:44 Pulse 77 07/13/20 11:31 Resp 18 07/13/20 11:31 BP 131/76 07/13/20 11:31 Pulse Ox 95 07/13/20 11:31 07/12/20 07/13/20 07/13/20 22:59 06:59 14:59 Intake Total 132 / 184.47 14 198.47 Balance 132 / 184.47 14 198.47 Weight last 48 hrs Weight 56.699 kg Physical Exam 2 Const: COMMON NORMALS: patient oriented x3 HENMT: COMMON NORMALS: normocephalic and atraumatic HEAD & SCALP: normocephalic and atraumatic Resp: COMMON NORMALS: clear to auscultation bilaterally EFFORT & INSPECTION: Yes symmetric chest movement AUSCULTATION: clear to auscultation bilaterally Cardio: COMMON NORMALS: regular rate, regular rhythm, S1 normal heart sound present, S2 normal heart sound present, No gallops present (Cardio), No murmurs present (Cardio), No rub (Cardio) and Peripheral pulses 2+ throughout RATE: regular rate RHYTHM: regular rhythm HEART SOUNDS: S1 normal heart sound present and S2 normal heart sound present PERIPHERAL PULSES: Peripheral puls es 2+ throughout GI: COMMON NORMALS: Normal to inspection, nondistended, normoactive bowel sounds present, Soft to palpation, non-tender, No hepatosplenomegaly present and no masses AUSCULTATION: Yes normoactive bowel sounds PALPATION: Yes Soft to palpation and Yes No hepatosplenomegaly present RECTAL EXAM: deferred Extremity: COMMON NORMALS: no clubbing, cyanosis or edema and no pedal edema Neuro: COMMON NORMALS: patient oriented x3 Data : 07/13/20 04:45 07/13/20 04:45 A&P Assessment and plan (1) Non-ST elevation [place] (NSTEMI): 2D echo: Normal left ventricular cavity and size, LVEF: 55 %, no RWMA , Grade II/IV diastolic dysfunction, no gross valvular abnormality, Pulmonary artery systolic pressure is within normal limits. Telemetry: Aspirin 81 mg oral daily Plavix 75 mg p.o. day Metoprolol tartrate 12.5 mg p.o. every 12 hours Atorvastatin 80 mg p.o. IMDUR 30 mg p.o. a day Lovenox 60 twice daily Nitro drip Sublingual nitro as needed N.p.o. after midnight Cardiac cath in a.m. Cardiology on board Status: Acute (2) Chronic back pain: Status: Acute Qualifiers: Back pain location: low back pain Sciatica presence: unspecified whether sciatica present (3) Smoking addiction: Nicotine patch Have counseled the patient to quit smoking. Status: Acute (4) Leukocytosis: Likely reactive, clinical suspicion for sepsis is low. Status: Acute (5) Hyponatremia: Hypovolemic hyponatremia. We will encourage p.o. intake Status: Acute Attestations Medical Necessity Statement*: Patient needs to be in hospital for management of NSTEMI. Coding Level of Care Code Acute Parking Enforcement Specialist for Tamar Acuña Diagnoses Non-ST elevation [place] (NSTEMI) I21.4 Chronic back pain M54.9; G89.29 Back pain location: low back pain Sciatica presence: unspecified whether sciatica present Smoking addiction F17.200 Leukocytosis D72.829 Hyponatremia E87.1
[2020-07-13] MEDS: oxyCODONE-APAP 5-325 mg Tablet 1 TAB PO (15:40)
[2020-07-13] MEDS: nicotine 21 mg Patch 1 PATCH TRANSDERMA (15:40)
--- NOTE | 2020-07-13 18:29 | PC.NURSE ---
sheath removed per protocol patient tolerated well no hematoma formation pressure held for 20 min hemostasis achieved
--- NOTE | 2020-07-13 18:57 | PC.NURSE ---
During sheath removal, while holding pressure, patient noted to have a 10 beat run of vtach. Patient was asymptomatic. Dr Newton notified. No new orders at this time. Will continue to monitor patient.
[2020-07-13] MEDS: atorvastatin 40 mg Tablet 80 MG PO (20:39)
[2020-07-13] MEDS: sodium chloride 0.9% 1,000 ML 100 ML IV (20:48)
[2020-07-14] VITALS (10 sets, daily range): BP systolic 80–126; BP diastolic 52–72; PULSE 71–85; RESP 12–29; TEMP 36.6–36.7; O2SAT 93–98
[2020-07-14] MEDS: zolpidem 5 mg Tablet PO (00:42)
[2020-07-14 03:51] LABS: Basophils % 0.2 %; Hemoglobin 14.4 g/dL (11.5-15.3); Lymphocytes # 1.2 10^3/uL (0.8-4.8); Lymphocytes % 10.9 %; Mean Corpuscular HGB Conc 32.7 g/dL (30.0-36.0); Mean Corpuscular Hemoglobin 29.4 pg (28.0-34.0); Mean Corpuscular Volume 89.8 fL (81-99); Mean Platelet Volume 10.5 fL (7.4-10.4); Monocytes # 0.9 10^3/uL (0.2-0.9); Monocytes % 8.1 %; Neutrophils # 8.77 10^3/uL (1.8-7.7); Neutrophils % 80.5 %; Nucleated Red Blood Cells % 0 %; Platelet Count 194 10^3/cmm (130-400); Red Cell Distribution Width 13.2 % (12.1-15.1); White Blood Count 10.9 10^3/uL (4.0-10.0)
[2020-07-14 04:16] LABS: Anion Gap 10.6 (5-19); Blood Urea Nitrogen 13 mg/dL (8-23); Calcium 9.2 mg/dL (8.5-10.5); Carbon Dioxide 28 mmol/L (22-29); Chloride 106 mmol/L (98-107); Glomerular Filtration Rate 123.8 mL/min (90-130); Glucose 106 mg/dL (65-115); Osmolality Calculated 293 mOsm/kg (285-295); Potassium 3.6 mmol/L (3.5-5.1); Sodium 141 mmol/L (136-145)
[2020-07-14] MEDS: oxyCODONE-APAP 5-325 mg Tablet 1 TAB PO ×3 (05:36→14:08)
--- NOTE | 2020-07-14 06:15 | PC.NURSE ---
IV accidently pulled out by pt, pt does not want IV restarted at this time, Dr Sánchez notified
[2020-07-14] MEDS: nicotine 21 mg Patch 1 PATCH TRANSDERMA (09:19)
[2020-07-14] MEDS: isosorbide mononitrate ER 30 mg Tablet PO (09:19)
[2020-07-14] MEDS: aspirin 81 mg Chew Tablet PO (09:19)
[2020-07-14] MEDS: pantoprazole DR 40 mg Tablet PO (09:19)
[2020-07-14] MEDS: clopidogrel 75 mg Tablet PO (09:20)
[2020-07-14] MEDS: metoprolol tartrate 25 mg Tablet 12.5 MG PO (09:52)
--- NOTE | 2020-07-14 11:30 | PM.DCS ---
Discharge Providers Date of Admission: 07/12/20 10:49 Date of Discharge: July 14, 2020 Attending Provider at Admission: Iraj Cooney MD Attending Provider at Discharge: Don Ferrara MD Primary Care Provider: CHINO Thapa Diagnoses at Discharge Discharge Diagnosis (1) Non-ST elevation [place] (NSTEMI): Status: Acute (2) Chronic back pain: Status: Acute Qualifiers: Back pain location: low back pain Sciatica presence: unspecified whether sciatica present (3) Smoking addiction: Status: Acute (4) Leukocytosis: Status: Acute (5) Hyponatremia: Status: Acute Reason for Visit Reason for Visit: CP GOING INTO JAW AND ARMS/BEGAN LAST PM Hospital Course Hospital Course This is a 65-year-old female with a past medical history of chronic smoking, chronic back pain, who presents to [facility] due to complaints of left-sided chest pain Patient was admitted to [facility] for chest pain with NSTEMI, underwent cardiac catheterization status post PCI and drug-eluting stent to RCA, tolerated the procedure well. No repeat chest pain, ambulating without any significant shortness of breath, discharged home. Discharged on aspirin, Plavix, statin, beta-audrey, Imdur, with close follow-up with cardiology as outpatient. Physical Exam Const: COMMON NORMALS: no acute distress and patient oriented x3 HENMT: COMMON NORMALS: normocephalic HEAD & SCALP: normocephalic Neck/C-Spine: COMMON NORMALS: no JVD Resp: COMMON NORMALS: normal respiratory effort, No retractions, No use of accessory muscles and clear to auscultation bilaterally AUSCULTATION: clear to auscultation bilaterally Cardio: COMMON NORMALS: no JVD, regular rate, regular rhythm, S1 normal heart sound present and S2 normal heart sound present RATE: regular rate RHYTHM: regular rhythm HEART SOUNDS: S1 normal heart sound present and S2 normal heart sound present GI: COMMON NORMALS: Normal to inspection, nondistended, normoactive bowel sounds present, Soft to palpation, non-tender, No hepatosplenomegaly present, no masses and no bruits PALPATION: Yes Soft to palpation and Yes No hepatosplenomegaly present Extremity: COMMON NORMALS: capillary refill normal, no clubbing, cyanosis or edema, no calf tenderness and no pedal edema Neuro: COMMON NORMALS: patient oriented x3 Psych: COMMON NORMALS: mental status grossly normal Discharge Data Data Completed and Pending: Completed Studies During Hospitalization Category Date Time Status XR chest 1V nivia ble [id number] Stat Exams 07/12/20 09:09 Completed CV echo complete* [id number] Routine Ultrasound 07/12/20 14:00 Completed Pending at discharge Category Date Time Status IT INSTRUCTOR request for service Routin e Exams 07/13/20 09:46 Taken Labs from last 24 hours 07/14/20 07/14/20 03:18 03:18 WBC 10.9 H RBC 4.90 Hgb 14.4 Hct 44.0 MCV 89.8 MCH 29.4 MCHC 32.7 RDW 13.2 Plt Count 194 MPV 10.5 H Neut % (Auto) 80.5 Lymph % (Auto) 10.9 [place] % (Auto) 8.1 Eos % (Auto) 0.0 Baso % (Auto) 0.2 Neut # (Auto) 8.77 H Lymph # (Auto) 1.2 [place] # (Auto) 0.9 Eos # (Auto) 0.0 Baso # (Auto) 0.0 Nucleated RBC % (a uto) 0 Nucleated RBCs # 0.0 Sodium 141 Potassium 3.6 Chloride 106 Carbon Dioxide 28 Anion Gap 10.6 BUN 13 Creatinine 0.5 GFR Calculation 123.8 Glucose 106 Calculated Osmolal ity 293 Calcium 9.2 Vitals: Last Vital Signs Temp 98.0 F 07/14/20 07:23 Pulse 80 07/14/20 07:23 Resp 28 H 07/14/20 09:50 BP 116/72 07/14/20 07:23 Pulse Ox 93 07/14/20 09:50 Discharge Plan Discharge Patient Disposition: Home Condition: Stable Prescriptions: New pantoprazole 40 mg Tablet,Delayed Release (Dr/Ec) 40 mg PO DAILY 30 Days Qty: 30 RF: 0 atorvastatin 40 mg Tablet 80 mg PO BEDTIME 30 Days Qty: 60 RF: 0 isosorbide mononitrate 30 mg Tablet Extended Release 24 Hr 30 mg PO DAILY 30 Days Qty: 30 RF: 0 metoprolol tartrate 25 mg Tablet 12.5 mg PO BID@0900,2100 30 Days Qty: 30 RF: 0 nicotine 21 mg/24 hr Patch 24 Hour 1 patch transdermal DAILY 28 Days Qty: 28 RF: 0 aspirin [Children's Aspirin] 81 mg Tablet,Chewable 81 mg PO DAILY 30 Days Qty: 30 RF: 0 nitroglycerin 0.4 mg Tablet, Sublingual 0.4 mg sublingual Q5M PRN (Reason: Chest Pain) 30 Days Qty: 30 RF: 0 clopidogrel 75 mg Tablet 75 mg PO DAILY 30 Days Qty: 30 RF: 0 Continued oxycodone 15 mg tablet 15 mg PO Q4H PRN (Reason: Pain) RF: 0 Discontinued Aleve 220 mg Tablet 220 - 440 mg PO Q8H PRN (Reason: Pain) RF: 0 BC Pain Relief 845-65 mg Powder In Packet See Rx Instructions .ROUTE .COMPLEX RF: 0 Referrals: Abby Stanton, CERTIFIED OPHTHALMIC MEDICAL TECHNICIAN-C [Primary Care Provider] - Discharge Diet: Cardiac Discharge Activity: Resume usual activity Patient Instructions: Opioid Safety Activity Restrictions/Additional Instructions: -Please follow-up with primary care provider in the next few days to recheck CBC -If you have bloody or black stools please go to the emergency room -Please take aspirin and Plavix as prescribed -Follow-up with cardiology -Please stop smoking Discharge Attestations Time Spent in Discharge Care*: greater than 30 min Quality Metrics Clinical Quality Measures During this hospital stay, did patient experience: None Coding Level of Care Code Acute Chg FW DC note Diagnoses Non-ST elevation [place] (NSTEMI) I21.4 Chronic back pain M54.9; G89.29 Back pain location: low back pain Sciatica presence: unspecified whether sciatica present Smoking addiction F17.200 Leukocytosis D72.829 Hyponatremia E87.1
--- NOTE | 2020-07-14 14:17 | P.PN_ITS ---
Subjective Subjective: Interval history: Denies any complaint blood pressure on the lower side. We will therefore hold DONOVAN inhibitor Medications: Reviewed: Yes Vitals/I&O/Wt Last Vital Signs Temp 97.8 F 07/14/20 12:00 Pulse 81 07/14/20 12:00 Resp 12 07/14/20 14:08 BP 80/52 07/14/20 12:00 Pulse Ox 93 07/14/20 14:08 07/13/20 07/14/20 07/14/20 22:59 06:59 14:59 Intake Total 1000 / 1000 1250 / 2250 240 / 240 Output Total 200 / 200 Balance 800 / 800 1250 / 2050 240 / 240 Physical Exam Narrative: EXAM NARRATIVE: GENERAL: Patient is alert, awake and oriented x3. NECK: No jugular vein distension. HEENT: No cyanosis. No icterus. No pallor. HEART: Regular S1 and S2. No murmur, rub or gallop. LUNGS: Clear to auscultate bilaterally. ABDOMEN: Soft, nontender and nondistended. Positive bowel sounds. No guarding, rebound or tenderness. CENTRAL NERVOUS SYSTEM: Grossly nonfocal. EXTREMITIES: Lower extremities without edema bilaterally. Data : 07/14/20 03:18 07/14/20 03:18 A&P Assessment and plan (1) Non-ST elevation [place] (NSTEMI): Currently patient is chest pain-free troponin more than 500 suggestive of non-ST relation [place]. Possible lesion in the inferior wall/of RCA. Continue monitoring continue nitro drip will proceed with left heart cath/PCI if indicated in the morning. Patient has been explained by myself all risk benefit and alternative for the procedure he understand the risk of major minor surgery major minor bleed urgent emergent CABG stroke and worse case scenario . She would like to proceed with it. She is a suitable candidate for DAPT. Will ask for echocardiogram to assess LV function On today's visit patient underwent coronary angiogram found to have 90 to 95% severely stenotic mid RCA treated with single drug-eluting stent. Excellent ang iographic result with CARLOS-3 flow was restored. Patient was loaded with 60 mg of Plavix yesterday we will discontinue Lovenox and continue Plavix 75 mg p.o. daily. Stable doing fine from cardiovascular perspective status post stent to mid RCA continue aspirin statin beta-audrey. DONOVAN inhibitor was not initiated due to hypotension. Follow-up with Treva Wall in 7 days. Follow-up with Dr. Newton in 3-month Status: Acute (2) Chronic back pain: Status: Acute Qualifiers: Back pain location: low back pain Sciatica presence: unspecified whether sciatica present (3) Smoking addiction: Advised to quit smoking patient would like to use nicotine patch. Status: Acute Attestations Medical Necessity Statement*: Patient require continuation hospitalization for above defined care Coding Level of Care Code Established Pt Acute Lead Cashier for [facility] Patient Type Established History Detailed Exam Detailed Medical Decision Making Moderate Complexity Diagnoses Non-ST elevation [place] (NSTEMI) I21.4 Chronic back pain M54.9; G89.29 Back pain location: low back pain Sciatica presence: unspecified whether sciatica present Smoking addiction F17.200
--- NOTE | 2020-07-14 15:58 | PC.NURSE ---
Discharge education provided, patient educated on follow-up appointment dates/ times, patient provided printed material on new medications, signs et symptoms that required immediate medical attention, etc. Patient was given time to ask questions. All patient belongings were gathered et patient was discharged home in a wheelchair with son.
--- NOTE | 2020-07-14 18:20 | PC.RESP ---
SMOKING CESSATION INFORMATION SENT TO PATIENT.
== END 2020-07-14 15:50 | disposition home or self-care (01) | DRG 247 ==
LOC: ER 10:47 → CSU 11:36
PROVIDERS: Internal Medicine Cardiovascular Disease; Admitting Provider Internal Medicine; Emergency Provider Family Medicine; PCP Nurse Practitioner; Visit Provider Family Medicine
PROC: B2111ZZ Fluoroscopy of Multiple Coronary Arteries using Low Osmolar Contrast (ICD-10-PCS; principal; 2020-07-13 10:00)
PROC: B2111ZZ Fluoroscopy of Multiple Coronary Arteries using Low Osmolar Contrast (ICD-10-PCS; 2020-07-13 10:00)
DX: I21.4 Non-ST elevation (NSTEMI) myocardial infarction (principal); E87.1 Hypo-osmolality and hyponatremia; J44.9 Chronic obstructive pulmonary disease, unspecified; I25.119 Atherosclerotic heart disease of native coronary artery with unspecified angina pectoris; I10 Essential (primary) hypertension; G89.29 Other chronic pain; M54.5 Low back pain; F17.210 Nicotine dependence, cigarettes, uncomplicated; E78.5 Hyperlipidemia, unspecified; Z79.82 Long term (current) use of aspirin; Z79.891 Long term (current) use of opiate analgesic
CPT/HCPCS: 36415; 71045; 80048; 80053; 82550; 84484; 85025; 93005; 93306; 93454; 96365; 96366; 96372; 96375; 99285; C1725; C1769; C1874; C1887; C1894; C9600; J1644; J1650; J2250; J2270; J2405; J3010; J3490; J7030; Q0163; Q9967

== ENCOUNTER → 2020-07-17 09:01 | Outpatient (BNVA) | payer MEDICARE, SELFPAY | PROVIDERS: PCP Nurse Practitioner; Visit Provider Internal Medicine Cardiovascular Disease | DX: I21.4 Non-ST elevation (NSTEMI) myocardial infarction (principal) | CPT/HCPCS: 85025 ==

== ENCOUNTER → 2020-08-26 15:59 | Outpatient (BNVA) | payer MEDICARE, MEDICAID, SELFPAY | PROVIDERS: PCP Nurse Practitioner; Visit Provider Nurse Practitioner | DX: E55.9 Vitamin D deficiency, unspecified (principal); R53.83 Other fatigue | CPT/HCPCS: 80053; 82306; 82607; 83735; 84443; 85025 ==

== ENCOUNTER 2020-09-09 15:05 | Outpatient (CLI) | payer MEDICARE, MEDICAID, SELFPAY ==
--- NOTE | 2020-09-09 15:14 | XRR_ITS ---
PROCEDURE INFORMATION: Exam: XR Lumbosacral Spine Exam date and time: 09/09/2020 3:14 PM Age: 65 years old Clinical indication: Low back pain; Patient HX: 8, constant, sharp and burning; Additional info: M54.5 - low back pain TECHNIQUE: Imaging protocol: XR of the lumbosacral spine. Views: 2 or 3 views. COMPARISON: CR Lumbar Spine Flex/Extens [id number] 10/22/2014 7:50 AM FINDINGS: Bones/joints: 5 [id number] vertebral bodies. Vertebral body height is maintained. No subluxation. Bones are diffusely osteopenic. Small marginal osteophytes at all lumbar spine levels, findings are new at L1-L2 and L2-L3. There is also increased loss of disc space height at L1-L2, L2-L3, and L5-S1 with development of vacuum phenomenon at L5-S1. Facet sclerosis and hypertrophy at T12-L1 through L5-S1. Findings have increased compared with the previous study. No acute fracture. Soft tissues: No paravertebral soft tissue abnormality. No radiopaque foreign body. XR/XR lumbar spine 2-3V* [id number] IMPRESSION: 1. No acute fracture of the lumbar spine. CT scan would be recommended if there is continuing clinical concern for fracture. 2. Worsening degenerative changes in the lumbar spine compared with 10/22/2014. 3. Incidental/nonacute findings are listed in the report.
--- NOTE | 2020-09-09 15:14 | XRR_ITS ---
PROCEDURE INFORMATION: Exam: XR Thoracic Spine Exam date and time: 09/09/2020 3:14 PM Age: 65 years old Clinical indication: Pain in thoracic spine; Additional info: M54.6 - pain in thoracic spine TECHNIQUE: Imaging protocol: XR of the thoracic spine. Views: 3 views. COMPARISON: MRI Thoracic Spine w/o* [id number] 10/22/2014 6:49 AM FINDINGS: Bones/joints: Stable mild degenerative changes in the spine. Vertebral body height is maintained. No subluxation. Bones are diffusely osteopenic. No acute fracture. Soft tissues: No paravertebral soft tissue abnormality. Lungs: Visualized lungs are clear. Vasculature: Atherosclerotic changes in the visualized arteries. XR/XR thoracic spine 3V* [id number] IMPRESSION: 1. No acute fracture of the thoracic spine. CT scan would be recommended if there is continuing clinical concern for fracture. 2. Stable mild degenerative changes in the spine. 3. Incidental/nonacute findings are listed in the report.
--- NOTE | 2020-09-09 15:14 | XRR_ITS ---
PROCEDURE INFORMATION: Exam: XR Left Knee Exam date and time: 09/09/2020 3:14 PM Age: 65 years old Clinical indication: Pain; Knee; Left; Additional info: M25.562 - pain in left knee TECHNIQUE: Imaging protocol: XR Left knee. Views: 3 views. COMPARISON: No relevant prior studies available. FINDINGS: Bones/joints: No acute fracture. No dislocation. Normal bone mineralization. No joint effusion. Joint spaces are maintained. Soft tissues: No soft tissue swelling. No radiopaque foreign body. XR/XR knee LT 3V* [id number] IMPRESSION: No acute fracture. Followup imaging recommended in 7-14 days if clinical concern for fracture persists.
--- NOTE | 2020-09-09 15:14 | XRR_ITS ---
PROCEDURE INFORMATION: Exam: XR Bone Length (Scanogram); Alignment Exam date and time: 09/09/2020 3:14 PM Age: 65 years old Clinical indication: Patient status: Cognizant; Pain: Low back pain; Additional info: M54.5 - low back pain TECHNIQUE: Imaging protocol: CT or XR scanogram of the legs was performed. Exam was focused on the alignment of the knees and hips for preoperative or postoperative evaluation. COMPARISON: No relevant prior studies available. FINDINGS: Bones/joints: No acute fracture or dislocation on this single AP images. The top of the left femoral head is approximately 4 mm above the right femoral head. The medial left femoral condyle is approximately 1.1 cm above the right medial femoral condyle. The center of the left tibial plafond is approximately 2 cm above the center of the right tibial plafond. XR/XR bone length study [id number] IMPRESSION: The left hip, knee, and ankle are located higher than the right hip, knee, and ankle as described in the report.
== END 2020-09-09 15:06 | disposition home or self-care (01) ==
PROVIDERS: PCP Nurse Practitioner; Visit Provider Nurse Practitioner
DX: M54.5 Low back pain (principal); M25.562 Pain in left knee; M54.6 Pain in thoracic spine
CPT/HCPCS: 72072; 72100; 73562; 77073

== ENCOUNTER → 2020-10-20 08:15 | Outpatient (BNVA) | payer MEDICARE, MEDICAID, SELFPAY | PROVIDERS: PCP Nurse Practitioner; Referring Provider Nurse Practitioner; Visit Provider Specialist | DX: M25.562 Pain in left knee (principal) | CPT/HCPCS: 73560; 73565 ==

== ENCOUNTER 2020-11-05 12:51 | Outpatient (CLI) | payer MEDICARE, MEDICAID, SELFPAY ==
--- NOTE | 2020-11-05 13:08 | MR_ITS ---
WS: [id number] MRI LEFT KNEE HISTORY: M25.562 - Pain in left knee COMPARISON: 10/20/2020 radiographs. Anterior cruciate ligament: Intact. Posterior cruciate ligament: Intact. Medial collateral ligament: Mild displacement of the MCL due to an extruded meniscus and osteophytes in the medial compartment. There is fluid within the proximal medial collateral ligament. Abnormal si gnal in the proximal ligament. Posterior lateral corner structures: Moderate thickening of the popliteus tendon and increased signal . Medial menisci: Complex tear in the posterior horn. There is abnormal signal extending to the inferio r articular surface but additional abnormal signal along the superior and inferior articular surfaces . Anterior horn is normal. Lateral meniscus: Intact. Normal signal, size and shape. Extensor mechanism: Distal quadriceps tendon demonstrates normal signal but is just being displaced b y a large joint effusion. Mild increased signal throughout the popliteal tendon. Fluid and soft tissue: Very large suprapatellar joint effusion. Fluid extends into the medial lateral compartments of the knee. Very tiny Cabrera's cyst. Osseous and articular structures: Patellofemoral compartment: Cartilage is preserved. No displacement. No marrow edema. Medial compartment: Mild narrowing medial compartment. Moderate loss of cartilage along the tibial pl ateau and femoral condyle involving the weightbearing surfaces. Numerous defects within the cartilage . Marginal osteophytes from the joint line. Lateral compartment: Mild narrowing of the lateral compartment. Mild thinning of the cartilage but ov erall preserved. No marrow edema. MR/MR knee LT wo con* [id number] IMPRESSION: 1. Very large joint effusion. Joint effusion is actually displacing the alexa ceps tendon. 2. Complex tear posterior horn medial meniscus. 3. Partial tear proximal MCL. 4. Popliteus tendinopathy along the lateral femoral condyle. 5. Mild narrowing medial compartment with moderate chondromalacia along the w eightbearing surfaces.
== END 2020-11-05 12:52 | disposition home or self-care (01) ==
LOC: RADSHAW 12:53
PROVIDERS: PCP Nurse Practitioner; Visit Provider Specialist
DX: M25.462 Effusion, left knee (principal); S83.232A Complex tear of medial meniscus, current injury, left knee, initial encounter; S83.412A Sprain of medial collateral ligament of left knee, initial encounter; X58.XXXA Exposure to other specified factors, initial encounter
CPT/HCPCS: 73721

== ENCOUNTER 2020-11-20 13:43 | Outpatient (CLI) | payer MEDICARE, MEDICAID, SELFPAY | END 2020-11-20 13:44 | disposition home or self-care (01) | LOC: SPT 13:44 | PROVIDERS: PCP Nurse Practitioner; Visit Provider Specialist | DX: Z46.89 Encounter for fitting and adjustment of other specified devices (principal); M17.12 Unilateral primary osteoarthritis, left knee | CPT/HCPCS: 97760; L1812 ==

== ENCOUNTER 2020-11-25 06:00 | Outpatient (RCR) | payer MEDICARE, MEDICAID, SELFPAY | END 2020-12-11 23:59 | disposition home or self-care (01) | LOC: TPT 06:00 | PROVIDERS: PCP Nurse Practitioner; Referring Provider Specialist; Visit Provider Specialist | DX: S83.207D Unspecified tear of unspecified meniscus, current injury, left knee, subsequent encounter (principal); X58.XXXD Exposure to other specified factors, subsequent encounter; M17.12 Unilateral primary osteoarthritis, left knee | CPT/HCPCS: 97110; 97162 ==

== ENCOUNTER 2020-12-12 06:00 | Outpatient (RCR) | payer MEDICARE, MEDICAID, SELFPAY | END 2021-01-11 23:59 | disposition home or self-care (01) | LOC: TPT 06:00 | PROVIDERS: PCP Nurse Practitioner; Referring Provider Specialist; Visit Provider Specialist | DX: M17.12 Unilateral primary osteoarthritis, left knee (principal) | CPT/HCPCS: 97110; 97164 ==

== ENCOUNTER → 2021-03-30 14:52 | Outpatient (BNVA) | payer MEDICARE, MEDICAID, SELFPAY | PROVIDERS: PCP Nurse Practitioner; Visit Provider Specialist | DX: M17.12 Unilateral primary osteoarthritis, left knee (principal); M25.562 Pain in left knee | CPT/HCPCS: 73560; 73565 ==

== ENCOUNTER → 2021-08-11 11:40 | Outpatient (BNVA) | payer MEDICARE, MEDICAID, SELFPAY | PROVIDERS: PCP Nurse Practitioner; Visit Provider Internal Medicine Cardiovascular Disease | DX: R53.83 Other fatigue (principal); Z79.01 Long term (current) use of anticoagulants; E78.5 Hyperlipidemia, unspecified; I25.10 Atherosclerotic heart disease of native coronary artery without angina pectoris; R06.02 Shortness of breath | CPT/HCPCS: 80048; 80061; 80076; 82550; 84443; 85025; 99214 ==

== ENCOUNTER → 2021-11-05 11:07 | Outpatient (BNVA) | payer MEDICARE, MEDICAID, SELFPAY | PROVIDERS: PCP Nurse Practitioner; Visit Provider Nurse Practitioner | DX: E55.9 Vitamin D deficiency, unspecified (principal); I10 Essential (primary) hypertension | CPT/HCPCS: 80053; 82306 ==

== ENCOUNTER 2022-02-19 16:39 | Emergency (ER) | payer MEDICARE, MEDICAID, SELFPAY ==
--- NOTE | 2022-02-19 17:12 | ED_ITS ---
HPI - URI/Sore Throat General: Chief Complaint: COVID symptoms Stated Complaint: cough,congestion Time Seen by Provider: 02/19/22 17:12 History of Present Illness: 67-year-old female comes in today with complaints of cough and congestion for 7 to 10 days. Patient appears nontoxic. Patient did have a home test that was positive for COVID-19. Patient is a routine smoker and has a history of coronary artery disease and hypertension. 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 History of non-ST elevation myocardial infarction (NSTEMI) Surgical History S/P coronary angiogram S/P hysterectomy Family History Mother , 40 y/o with pacemaker Myocardial infarct CAD (coronary artery disease) of [place] at 40 yrs old Father , 70's prostate cancer Cancer CAD (coronary artery disease) Myocardial infarct Brother Diabetes Denies family history of Clotting disorder Dementia Chronic kidney disease (CKD) Suicide Anesthesia complication Bleeding disorder Stroke Social History Smoking and tobacco status: current every day smoker Second hand smoke exposure: No Smoking risk assessment/counseling performed?: No Alcohol intake: never Desire information about alcohol rehabilitation?: No Counseling given: No Desire information about substance/drug rehabilitation?: No Counseling given: No Adopted: No Caregiver/support person: No Lives independently: Yes Household members: spouse Housing: House Marital status: Number of children: 4 service: No Current occupational status: retired Current gender identity: Female Physical Exam Const: COMMON NORMALS: alert HENMT: COMMON NORMALS: normocephalic HEAD & SCALP: normocephalic Resp: COMMON NORMALS: normal respiratory effort AUSCULTATION: wheezes GI: COMMON NORMALS: non-tender Neuro: SENSORIUM/ORIENTATION: Yes alert Skin: COMMON NORMALS: turgor normal GENERAL SKIN EXAM: turgor normal Course Vital Signs: Vital signs: Vital Signs Temperature 98.9 F 02/19/22 17:18 Pulse Rate 90 02/19/22 18:29 Respiratory Rate 16 02/19/22 18:29 Blood Pressure 114/69 02/19/22 18:29 Pulse Oximetry 90 02/19/22 18:29 Oxygen Delivery Me thod 02/19/22 17:47 MDM - URI/Sore Throat Medical Decision Making 67-year-old female comes in today for evaluation of cough and congestion for over 1 week. Patient was positive for COVID-19. On exam patient does have some wheezing in the lung chu but good air movement throughout. Patient is a chronic smoker. Differential diagnosis includes pneumonia, bronchitis, exacerbation of COPD, respiratory failure. No signs of respiratory failure noted. Chest x-ray was unremarkable. Believe the patient has some wheezing secondary to her smoking. No distress was noted. Reviewed exam with patient with recommendations for follow-up or return to the ER. Patient reported understanding. Lab Data Radiology Impressions Chest X-Ray 02/19/22 17:28 IMPRESSION: No acute findings. Discharge Plan Discharge Patient Disposition: Home Clinical Impression: COVID-19 Condition: Stable Prescriptions: No Action (DME) Hinged knee brace See Rx Instructions .ROUTE .MEDSUPPLY Qty: 1 0RF Rx Instructions: As directed atorvastatin 40 mg tablet 80 mg PO BEDTIME Qty: 180 1RF ergocalciferol (vitamin D2) 1,250 mcg (50,000 unit) capsule 1,250 mcg PO .weekly Qty: 4 2RF Children's Aspirin 81 mg tablet,chewable 81 mg PO DAILY Qty: 30 6RF clopidogrel 75 mg tablet 75 mg PO DAILY Qty: 90 3RF metoprolol succinate 25 mg tablet extended release 24 hr 25 mg PO DAILY Qty: 90 3RF oxycodone 15 mg tablet 15 mg PO Q4H PRN (Reason: Pain) Rx Instructions: HOLD WITHIN 4 HOURS OF SLEEP Discharge Orders: Discharge ED (Routine); Ordered 02/19/22 Ordered By: Alexander Moreira Referrals: Abby Stanton, [employer] [Primary Care Provider] - Discharge Diet: Usual diet Discharge Activity: Increase activity as tolerated Patient Instructions: COVID-19 (Coronavirus Disease 2019) (ED) Activity Restrictions/Additional Instructions: Home and rest. Continue routine medications. Drink plenty of fluids. Use acetaminophen or ibuprofen for discomfort or fever. Follow-up with primary care as needed. Return to ED for worsening symptoms such as increased shortness of breath, severe chest pain, or new concerns. Coding Level of Care Code ED [employer]acing Supervisor for Tamar Acuña
[2022-02-19 17:18] VITALS: BP 103/72; PULSE 93; RESP 14; TEMP 37.2; O2SAT 90; BMI 25.4
--- NOTE | 2022-02-19 17:28 | XRR_ITS ---
PROCEDURE INFORMATION: Exam: XR Chest Exam date and time: 02/19/2022 5:38 PM Age: 67 years old Clinical indication: Cough; Additional info: Cough and congestion TECHNIQUE: Imaging protocol: Radiologic exam of the chest. Views: 1 view. COMPARISON: CR XR chest 1V portable [id number] 07/12/2020 9:14 AM FINDINGS: Lungs: Calcified granulomas in both lungs. Changes of emphysema. No consolidation. Mild atelectasis or scarring in the left lung base. Pleural spaces: Unremarkable. No pleural effusion. No pneumothorax. Heart/Mediastinum: Unremarkable. No cardiomegaly. Bones/joints: Unremarkable. XR/XR chest 1V portable [id number] IMPRESSION: No acute findings.
[2022-02-19 17:47] VITALS: O2SAT 92
[2022-02-19 18:29] VITALS: BP 114/69; PULSE 90; RESP 16; O2SAT 90
[2022-02-19 20:18] LABS: Adenovirus Not Detected (NOT DETECT); Chlamydia Pneumoniae Not Detected (NOT DETECT); Coronavirus 229E,HKU1,NL63,OC4 Not Detected (NOT DETECT); Human Metapneumovirus Not Detected (NOT DETECT); Human Rhinovirus/Enterovirus Not Detected (NOT DETECT); Influenza A Not Detected (NOT DETECT); Influenza A H1 Not Detected (NOT DETECT); Influenza A H1-2009 Not Detected (NOT DETECT); Influenza A H3 Not Detected (NOT DETECT); Influenza B Not Detected (NOT DETECT); Mycoplasma Pneumoniae Not Detected (NOT DETECT); Parainfluenza Virus Type 1 Not Detected (NOT DETECT); Parainfluenza Virus Type 2 Not Detected (NOT DETECT); Parainfluenza Virus Type 3 Not Detected (NOT DETECT); Parainfluenza Virus Type 4 Not Detected (NOT DETECT); Respiratory Syncytial Virus A Not Detected (NOT DETECT); Respiratory Syncytial Virus B Not Detected (NOT DETECT); SARS-COV-2 Detected (NOT DETECT)
== END 2022-02-19 18:30 | disposition home or self-care (01) ==
PROVIDERS: Emergency Provider Nurse Practitioner Family; PCP Nurse Practitioner
DX: U07.1 COVID-19 (principal); Z79.02 Long term (current) use of antithrombotics/antiplatelets; F17.210 Nicotine dependence, cigarettes, uncomplicated; I25.2 Old myocardial infarction
CPT/HCPCS: 71045; 87635; 99283

== ENCOUNTER → 2022-04-27 15:01 | Outpatient (BNVA) | payer MEDICARE, MEDICAID, SELFPAY | PROVIDERS: PCP Nurse Practitioner; Visit Provider Nurse Practitioner Family | DX: I25.10 Atherosclerotic heart disease of native coronary artery without angina pectoris (principal); I10 Essential (primary) hypertension; F17.200 Nicotine dependence, unspecified, uncomplicated; Z11.59 Encounter for screening for other viral diseases; Z86.19 Personal history of other infectious and parasitic diseases | CPT/HCPCS: 36415; 80061; 86705; 86706; 86709; 86803; 87340; 87522; 99214 ==

== ENCOUNTER → 2022-07-29 11:36 | Outpatient (BNVA) | payer MEDICARE, MEDICAID, SELFPAY | PROVIDERS: PCP Nurse Practitioner; Visit Provider Nurse Practitioner | DX: I10 Essential (primary) hypertension (principal); E55.9 Vitamin D deficiency, unspecified | CPT/HCPCS: 80053; 80061; 82306; 82607 ==

== ENCOUNTER → 2022-10-22 10:05 | Outpatient (BNVA) | payer MEDICARE, MEDICAID, SELFPAY | PROVIDERS: PCP Nurse Practitioner; Visit Provider Internal Medicine Cardiovascular Disease | DX: F17.210 Nicotine dependence, cigarettes, uncomplicated (principal); I10 Essential (primary) hypertension; I25.10 Atherosclerotic heart disease of native coronary artery without angina pectoris | CPT/HCPCS: 99213 ==

== ENCOUNTER → 2022-11-25 11:37 | Outpatient (BNVA) | payer MEDICARE, MEDICAID, SELFPAY | PROVIDERS: PCP Nurse Practitioner; Visit Provider Nurse Practitioner | DX: G47.00 Insomnia, unspecified (principal); I10 Essential (primary) hypertension | CPT/HCPCS: 80053; 80061; 84443 ==

== ENCOUNTER → 2023-05-12 12:05 | Outpatient (BNVA) | payer MEDICARE, MEDICAID, SELFPAY | PROVIDERS: PCP Nurse Practitioner; Visit Provider Nurse Practitioner | DX: E55.9 Vitamin D deficiency, unspecified (principal) | CPT/HCPCS: 80053; 82306; 82607 ==

== ENCOUNTER 2023-09-07 12:56 | Outpatient (CLI) | payer MEDICARE, MEDICAID, SELFPAY ==
--- NOTE | 2023-09-07 13:07 | MR_ITS ---
WS: [id number] MRI LUMBAR SPINE NONCONTRAST HISTORY: Chronic low back pain. COMPARISON: 10/22/2014 TECHNIQUE: Sagittal and axial multisequence imaging is submitted. Mild straightening of the normal cervical lordosis. There is a central disc protrusion at C4-5 encroa mundo upon the ventral thecal sac. Mild increase in thoracic kyphosis. Less than 2 mm anterolisthesis of L4. There is a small amount of vertebral corner edema at L2, L3, L5 and S1. No fractures. Mild disc space narrowing and desiccation. Conus terminates normally at L1-2 disc level. L1-L2: Mild annular disc bulging and facet arthritis. No high-grade stenosis. L2-L3: Diffuse annular disc bulging contacting the traversing L3 nerve roots. Broad-based LEFT forami nal disc protrusion with fissure. Mild facet arthritis. Mild central, bilateral subarticular recess a nd foraminal stenosis. Mild progression since the prior study. L3-L4: Mild annular disc bulging encroaching upon the subarticular recesses and contacting the isai sing L4 nerve roots. Slightly greater on the RIGHT. Disc osteophyte disease in the foramina bilateral ly. Mild central, bilateral subarticular recess and foraminal stenosis. L4-L5: Diffuse annular disc bulging with marked ligamentum flavum and facet arthritis. There is signi ficant narrowing of the central canal. Progression of central stenosis. Marked ligamentum flavum encr oachment upon the central canal. The traversing L5 nerve roots are being compressed and deformed. Sev ere central with bilateral subarticular recess stenosis. Mild foraminal stenosis. L5-S1: Mild annular disc bulging with a central broad-based disc protrusion contacting the traversing S1 nerve roots. Mild progression of the central disc protrusion. Mild osteophytic ridging. Mild to m oderate bilateral foraminal stenosis, LEFT greater than RIGHT. Paravertebral soft tissues are normal. MR/MR lumbar spine wo con* [id number] IMPRESSION: 1. Progression of degenerative disc disease and spondylosis since 2014. 2. L4-5: Severe central with bilateral subarticular recess stenosis and mild f oraminal stenosis. There is significant disc contact with deformity on the josette ersing L5 nerve roots. 3. L2-3 and L3-4: Mild central, bilateral subarticular recess and foraminal st enosis with disc contacting the traversing nerve roots. 4. Broad-based LEFT foraminal disc protrusion at L2-3. 5. L5-S1: Central broad-based disc protrusion has progressed since the prior e xam. There is now contact on the traversing S1 nerve roots. Mild to moderate bi lateral foraminal stenosis, LEFT greater than RIGHT.
== END 2023-09-07 12:57 | disposition home or self-care (01) ==
LOC: RAD 12:58
PROVIDERS: PCP Nurse Practitioner; Visit Provider Anesthesiology Pain Medicine
DX: M51.36 Other intervertebral disc degeneration, lumbar region (principal); M48.061 Spinal stenosis, lumbar region without neurogenic claudication; M99.63 Osseous and subluxation stenosis of intervertebral foramina of lumbar region; M25.78 Osteophyte, vertebrae
CPT/HCPCS: 72148

== ENCOUNTER → 2023-10-27 11:47 | Outpatient (BNVA) | payer MEDICARE, MEDICAID, SELFPAY | PROVIDERS: PCP Nurse Practitioner; Visit Provider Nurse Practitioner | DX: E55.9 Vitamin D deficiency, unspecified (principal); I10 Essential (primary) hypertension | CPT/HCPCS: 80053; 82306; 82607; 84443; 85025 ==

== ENCOUNTER → 2024-02-28 10:34 | Outpatient (BNVA) | payer MEDICARE, MEDICAID, SELFPAY | PROVIDERS: PCP Nurse Practitioner; Visit Provider Internal Medicine Cardiovascular Disease | DX: E78.5 Hyperlipidemia, unspecified (principal); R07.9 Chest pain, unspecified; R94.31 Abnormal electrocardiogram [ECG] [EKG] | CPT/HCPCS: 93005; 99214 ==

== ENCOUNTER → 2024-04-12 11:48 | Outpatient (BNVA) | payer MEDICARE, MEDICAID, SELFPAY | PROVIDERS: PCP Nurse Practitioner; Visit Provider Nurse Practitioner | DX: E55.9 Vitamin D deficiency, unspecified (principal) | CPT/HCPCS: 80053; 82306 ==

== ENCOUNTER → 2024-08-30 09:17 | Outpatient (BNVA) | payer MEDICARE, MEDICAID, SELFPAY | PROVIDERS: PCP Nurse Practitioner; Visit Provider Nurse Practitioner Family | DX: I25.10 Atherosclerotic heart disease of native coronary artery without angina pectoris (principal); E78.5 Hyperlipidemia, unspecified; I10 Essential (primary) hypertension; F17.210 Nicotine dependence, cigarettes, uncomplicated | CPT/HCPCS: 36415; 80061; 99214 ==

== ENCOUNTER → 2024-09-06 12:02 | Outpatient (BNVA) | payer MEDICARE, MEDICAID, SELFPAY | PROVIDERS: PCP Nurse Practitioner; Visit Provider Nurse Practitioner | DX: F41.1 Generalized anxiety disorder (principal) | CPT/HCPCS: 80053; 85025 ==